=== PATIENT | female | born 1990 | race African-American/Black ===

== ENCOUNTER 2017-09-25 13:36 | Emergency (ER) | payer MEDICAID ==
[~2017-09-25] VITALS: Ht 167.6 cm; Wt 60.0 kg
[2017-09-25] MEDS ORDERED: CYCLOBENZAPRINE 10MG TABLET PO ONE (17:15)
[2017-09-25] MEDS ORDERED: KETOROLAC 60MG/2ML VIAL IM ONE (17:15)
[2017-09-25 18:05] VITALS: BP 129/72
== END 2017-09-25 18:38 | disposition home or self-care (01) ==
LOC: ER 13:46
DX: M62.830 Muscle spasm of back (principal); M79.604 Pain in right leg; V43.52XA Car driver injured in collision with other type car in traffic accident, initial encounter; Y93.89 Activity, other specified; Y92.488 Other paved roadways as the place of occurrence of the external cause
CPT/HCPCS: 72100; 72170; 81025; 96372; 99284; J1885; Z7610

== ENCOUNTER 2019-07-20 10:33 | Emergency (ER) | payer MEDICAID ==
[~2019-07-20] VITALS: Ht 154.9 cm; Wt 54.0 kg
[2019-07-20] MEDS ORDERED: ONDANSETRON HCL 4MG/2ML INJ IV ONE (13:00)
[2019-07-20] MEDS ORDERED: SODIUM CHLORIDE 0.9% 1,000 ML IV ONE (13:00)
[2019-07-20 13:12] LABS: CHLORIDE 98 mEq/L (98-107)
[2019-07-20 13:13] LABS: UCG SCREEN NEGATIVE
[2019-07-20] MEDS ORDERED: KCL 20MEQ/100ML PREMIX 100 ML IV ONE (14:15)
[2019-07-20 17:20] VITALS: BP 120/80
== END 2019-07-20 17:29 | disposition home or self-care (01) ==
LOC: ER 10:33
DX: K52.9 Noninfective gastroenteritis and colitis, unspecified (principal); E86.0 Dehydration; F12.10 Cannabis abuse, uncomplicated; Z98.890 Other specified postprocedural states
CPT/HCPCS: 36415; 80048; 81025; 96361; 96374; 99283; J2405; J3480; J7030; J7040; Z7610

== ENCOUNTER 2021-07-02 10:06 | Emergency (ER) | payer MEDICAID ==
[~2021-07-02] VITALS: Ht 154.9 cm; Wt 57.0 kg
[2021-07-02] MEDS ORDERED: KETOROLAC 60MG/2ML VIAL IM ONE (10:45)
[2021-07-02] MEDS ORDERED: OFLO5DRO4 LEFT EAR (10:52)
[2021-07-02] MEDS ORDERED: AMOX1TAB16 MT (10:52)
[2021-07-02 11:19] VITALS: BP 116/62
== END 2021-07-02 11:55 | disposition home or self-care (01) ==
LOC: ER 10:06
DX: H66.92 Otitis media, unspecified, left ear (principal); H60.92 Unspecified otitis externa, left ear; Z98.890 Other specified postprocedural states
CPT/HCPCS: 96372; 99283; J1885

== ENCOUNTER 2021-07-20 19:02 | Emergency (ER) | payer MEDICAID ==
[~2021-07-20] VITALS: Ht 154.9 cm; Wt 57.0 kg
[~2021-07-20 19:02] MED LIST: AMOX1TAB16 MT; OFLO5DRO4 LEFT EAR
[2021-07-20 19:12] VITALS: BP 103/58
[2021-07-20] MEDS ORDERED: NEOM10DR11 LEFT EAR (20:14)
== END 2021-07-20 20:46 | disposition home or self-care (01) ==
LOC: ER 19:02
DX: H60.92 Unspecified otitis externa, left ear (principal); Z20.822 Contact with and (suspected) exposure to COVID-19; F12.10 Cannabis abuse, uncomplicated; Z98.890 Other specified postprocedural states
CPT/HCPCS: 87426; 99283

== ENCOUNTER 2021-12-02 18:47 | Emergency (ER) | payer MEDICAID ==
[~2021-12-02] VITALS: Ht 154.9 cm; Wt 52.0 kg
[~2021-12-02 18:47] MED LIST changes: +NEOM10DR11 LEFT EAR
[2021-12-02] MEDS ORDERED: FAMOTIDINE 20MG/2ML VIAL IV ONE (19:15)
[2021-12-02] MEDS ORDERED: SODIUM CHLORIDE 0.9% 1,000 ML IV SCH (19:15)
[2021-12-02] MEDS ORDERED: EPINEPHRINE 1:1000 1 MG/ML AMP IM ONE (19:15)
[2021-12-02] MEDS ORDERED: DIPHENHYDRAMINE 50MG/ML VIAL IV ONE (19:15)
[2021-12-02] MEDS ORDERED: METHYLPREDNISOLONE SOD SUCC 125 MG/2 ML VIAL IV ONE (19:15)
[2021-12-02 19:21] LABS: BASOPHILS % 0.2 % (0.0-2.0); EOSINOPHILS % 0.2 % (0.0-5.0); HEMATOCRIT. 43.5 % (36.0-48.0); HEMOGLOBIN. 14.9 g/dL (12.0-16.0); LYMPHOCYTES % 20.2 % (20.0-50.0); MEAN CORPUSCULAR HEMOGLOBIN 32.8 pg (28.0-32.0); MEAN CORPUSCULAR VOLUME 95.7 fL (81.0-99.0); MEAN PLATELET VOLUME 8.4 fl (7.4-10.4); MONOCYTES % 4.4 % (2.0-8.0); PLATELET 400 x1000/uL (130-400); RED BLOOD CELL COUNT 4.55 mill/uL (4.2-5.4); RED CELL DISTRIBUTION WIDTH 13.3 % (11.6-14.6)
[2021-12-02 19:29] LABS: CHLORIDE 107 mEq/L (98-107)
[2021-12-02 19:39] LABS: HCG SCREEN NEGATIVE
[2021-12-02] MEDS ORDERED: P50 MT (21:25)
[2021-12-02] MEDS ORDERED: DIPH25TA62 MT (21:25)
[2021-12-02] MEDS ORDERED: FAMO40TA7 MT (21:25)
[2021-12-02 21:30] VITALS: BP 101/63
== END 2021-12-02 21:45 | disposition home or self-care (01) ==
LOC: ER 18:47
DX: T78.40XA Allergy, unspecified, initial encounter (principal); X58.XXXA Exposure to other specified factors, initial encounter; Z98.890 Other specified postprocedural states
CPT/HCPCS: 36415; 71045; 80053; 84703; 85025; 96372; 96374; 96375; 99284; J1200; J2930; J3490

== ENCOUNTER 2022-01-13 21:19 | Emergency (ER) | payer MEDICAID, OTHER ==
[~2022-01-13] VITALS: Ht 154.9 cm; Wt 55.0 kg
[~2022-01-13 21:19] MED LIST changes: +DIPH25TA62 MT; +FAMO40TA7 MT; +P50 MT
[2022-01-13 21:25] VITALS: BP 118/76
[2022-01-14 00:02] LABS: CLARITY URINE CLOUDY (CLEAR); COLOR URINE YELLOW (YELLOW); KETONES URINE TRACE (NEGATIVE); LEUKOCYTE ESTERASE URINE 2+ (NEGATIVE); NITRITE URINE NEGATIVE (NEGATIVE); OCCULT BLOOD URINE 2+ (NEGATIVE); PH URINE 5.5 (4.5-8.0); PROTEIN URINE 2+ (NEGATIVE); SPECIFIC GRAVITY URINE 1.033 (1.005-1.030); UROBILINOGEN URINE 0.2 E.U./dL (0.2-1.0)
[2022-01-14 00:25] LABS: UCG SCREEN NEGATIVE
== END 2022-01-14 00:28 | disposition left against medical advice (07) ==
LOC: ER 21:19
DX: R39.15 Urgency of urination (principal); Z98.890 Other specified postprocedural states
CPT/HCPCS: 81003; 81025; 99283